=== PATIENT | female | born 1955 | race American Indian/Alaskan Native ===

== ENCOUNTER 2016-12-03 11:24 | Emergency (ER) | payer SELFPAY ==
[2016-12-03 11:52] VITALS: BP 180/84
[2016-12-03 12:36] LABS: Bilirubin,Urine NEG (Negative); Blood,Urine NEG (Negative); Ketones,Urine NEG (Negative); Leukocyte Esterase,Urine MOD (Negative); Mucus,Urine FEW /HPF; Nitrite,Urine NEG (Negative); Protein,Urine <15 mg/dL mg/dL (Negative); Urobilinogen,Urine < 2.0 mg/dL (<2.0)
--- NOTE | 2016-12-03 15:37 | Emergency Department Report ---
HPI - General Chief Complaint: Back Pain/Injury Time Seen by Provider: 12/03/16 15:37 - HPI HPI: Patient care report that she has lower back pain and bilateral flank pain that started at attended been ongoing for 1 week. She said pain is crampy. She denies any urinary burning frequency or urgency. Denies any abdominal pain. Denies any vaginal bleeding or discharge. Denies any fever or chills. Denies any nausea or vomiting. No [id number] medication taken per patient. Nothing makes pain better nothing makes it worse. Denies any back injury or history of chronic back pain. Denies any loss of bowel or bladder function. Denies any numbness or tingling into the legs. ED Past Medical Hx - Past Medical History Previous Medical History?: Yes Hx Hypertension: Yes - Surgical History Past Surgical History?: Yes Additional Surgical History: C section - Family History Family history: hypertension - Social History Smoking Status: Current Every Day Smoker Substance Use Type: None - Medications Home Medications: Home Medications Medication Instructions Recorded Confirmed Last Taken Type Nitrofurantoin [place]/M-Cryst 100 mg PO Q12HR #14 capsule 12/03/16 Unknown Rx [Macrobid CAP] ED Review of Systems ROS: Stated complaint: LOWER BACK PAIN Other details as noted in HPI Comment: All other systems reviewed and negative Constitutional: no symptoms reported Eyes: denies: eye pain, vision change ENT: denies: throat pain Respiratory: no symptoms reported Cardiovascular: denies: chest pain, palpitations, dyspnea on exertion, edema, syncope, paroxysmal nocturnal dyspnea Gastrointestinal: denies: abdominal pain, nausea, vomiting, diarrhea, constipation, hematemesis, melena, hematochezia Musculoskeletal: denies: back pain, joint swelling, arthralgia, myalgia Skin: denies: rash Neurological: denies: headache, weakness, numbness, paresthesias, confusion, abnormal gait, vertigo Physical Exam - Physical Exam Vital Signs: Vital Signs 12/03/16 11:49 Temperature 97.9 F Pulse Rate 71 Respiratory 16 Rate Blood Pressure 180/84 O2 Sat by Pulse 99 Oximetry General: This is a 61-year-old patient well-nourished well-developed in no acute distress. Physical Exam: Head: Normocephalic, atraumatic, no abrasion, no bruising and no contusion. Eyes: Biateral pupils equal and reactive to light, bilateral EOM intact.. Bilateral conjunctival and sclera without injection, normal accommodation. Ears: Bilateral EAC without any redness drainage or swelling, lateral TM pearly camacho bilateral tragus is normal and nontender. No auricular abnormality. No Mastoid bones tenderness. Nose: Moist, erythema and congested with clear drainage Mouth: Positive pharyngeal exudate and erythema. Uvula is midline and oral airways patent. Moist and tongue is normal Neck: Supple, Positive Cervical adenopathy, full range of motion and no C-spine tenderness. No swelling or tracheal deviation Cardiovascular: S1, S2. Regular rate and rhythm. No murmur. Capillary refill is less then 3 seconds. Lungs: Clear to auscultate bilaterally. No rhonchi, wheezes or rales. No chest wall tenderness MSK: Strength 5/5 in all extremities. No joint deformity or crepitus. Normal inspection. Full range of motion to all extremities Extremities: No clubbing, cyanosis or edema. +2 pulses. No neurovascular compromise Skin: Clean, dry and intact. No rash or lesions. Psych: Normal mood and behavior. ED Course Vital Signs 12/03/16 11:49 Temperature 97.9 F Pulse Rate 71 Respiratory 16 Rate Blood Pressure 180/84 O2 Sat by Pulse 99 Oximetry - Reevaluation(s) Reevaluation #1: 12/03/16 17:28 Patient received Rocephin 1 g IM in emergency room for urinary tract infection and Toradol 30 mg IM for back pain. She Voice relief of pain. ED Medical Decision Making - Lab Data Lab Results 12/03/16 Range/Units 12:11 Urine Color Yellow (Yellow) Urine Turbidity Clear (Clear) Urine pH 5.0 (5.0-7.0) Ur Specific [place] 1.018 (1.003-1.030) Urine Protein <15 mg/dl (Negative) mg/dL Urine Glucose (UA) Neg (Negative) mg/dL Urine Ketones Neg (Negative) mg/dL Urine Blood Neg (Negative) Urine Nitrite Neg (Negative) Urine Bilirubin Neg (Negative) Urine Urobilinogen < 2.0 (<2.0) mg/dL Ur Leukocyte Esterase Mod (Negative) Urine WBC (Auto) 17.0 H (0.0-6.0) /HPF Urine RBC (Auto) 4.0 (0.0-6.0) /HPF U Epithel Cells (Auto) 2.0 (0-13.0) /HPF Urine Mucus Few /HPF Urine culture sent - Medical Decision Making ED Course: Patient here reports lower back pain 10 out of 10 times one week and getting progressively worse. Patient found to have urinary tract infection. She has moderate leukocyte Estrace and white blood cell in her urine. Patient says she doesn't drink enough water. I discussed diagnosis and treatment plan the patient and she was understanding. Patient was given Rocephin and 1 g IM for urinary tract infection and Toradol 30 mg IM for back pain. She had no adverse reaction from medication. Urine culture sent. Patient discharged home in stable condition with prescription for Macrobid and to follow-up with her primary care physician in 3 days and if she does not have when she can follow- up at [facility]. Patient with elevated blood pressure. I instructed her to keep a lot of her blood pressure and take to primary care visit with her. Patient does have a history of high blood pressure. Discharged home in stable condition. Critical care attestation.: If time is entered above; I have spent that time in minutes in the direct care of this critically ill patient, excluding procedure time. ED Disposition Clinical Impression: Acute cystitis without hematuria, Elevated blood pressure reading with diagnosis of hypertension Pain in lower back Qualifiers: Chronicity: acute Back pain laterality: bilateral Sciatica presence: without sciatica Qualified Code(s): M54.5 - Low back pain Disposition: DC-01 TO HOME OR SELFCARE Is pt being admited?: No Does the pt Need Aspirin: No Condition: Stable Instructions: Urinary Tract Infection in Women (ED), Acute Low Back Pain (ED), Hypertension (ED) Additional Instructions: Please increase your fluid intake Please take antibiotic as prescribed for urinary tract infection Take plain Tylenol for back pain per dosing chart guidelines. Follow-up with your primary care physician in 3-5 days and if he do not have one and he can follow up with [facility] You have elevated blood Pressure is elevated in emergency room today so please keep a lot of the blood pressure and take to primary care visit with you Prescriptions: Nitrofurantoin [place]/M-Cryst [Macrobid CAP] 100 mg PO Q12HR #14 capsule Referrals: PRIMARY CARE, [Primary Care Provider] - 3-5 Days [facility] [Outside] - 3-5 Days Forms: Accompanied Note, Work/School Release Form(ED)
[2016-12-03] MEDS ORDERED: ROCEPHIN IM STA (15:43)
[2016-12-03] MEDS ORDERED: XYLOCAINE 1% MPF 5 mL INFILTRATI ONE (15:44)
[2016-12-03] MEDS ORDERED: TORADOL IV ONE (15:44)
[2016-12-03] MEDS ORDERED: TORADOL IM ONE (16:03)
== END 2016-12-03 17:36 | disposition home or self-care (01) ==
LOC: ED 11:24
DX: M54.5 Low back pain (principal); N30.00 Acute cystitis without hematuria; I10 Essential (primary) hypertension; F17.200 Nicotine dependence, unspecified, uncomplicated
CPT/HCPCS: 81001; 87086; 96372; 99283; J0696; J1885